=== PATIENT | male | born 1990 | race Caucasian/White ===

== ENCOUNTER 2017-09-09 07:55 | Emergency (ER) | payer BC ==
[2017-09-09] MEDS ORDERED: HYDROmorphone 2 MG/ML SDV IM ONE (08:22)
[2017-09-09] MEDS ORDERED: Metoclopramide 10 MG/2 ML SDV IM ONE (08:22)
--- NOTE | 2017-09-10 18:35 | ER ---
DATE SEEN: 09/09/2017 TIME SEEN: The patient was seen at 0730 hours. HISTORY OF PRESENT ILLNESS: The patient has a cyst-pilonidal cyst that was incised in [place] and he has mild epistaxis. He states he has epistaxis when he gets anxious. Today, he has marked pain. He had this incised yesterday. He was not sent home with any pain medicine. Packing was placed. He pulled the packing out per instructions per his doctor. The patient has marked pain. He is lying on his abdomen. PAST MEDICAL HISTORY: Hypertension and obesity. SOCIAL HISTORY: Smokes less than a pack of cigarettes a day. Works in [employer]. He is here with his . REVIEW OF SYSTEMS: Otherwise negative. PHYSICAL EXAMINATION: VITAL SIGNS: Blood pressure 133/79, heart rate 77, respirations 18, temperature is 36.8 degrees centigrade, and oxygen saturation 96%. 90.7 kg. GENERAL: The patient is prone on his abdomen. He has too much pain in his sacral area, where the incision of pilonidal cyst was performed. He has a trace of blood and is currently using handkerchief that he has under his face. HEENT: Negative. Nares have crusted blood in the right naris. No persistent bleeding. Pharynx without abnormality. No posterior pharyngeal blood. Moderate macroglossia. LUNGS: Clear without rales or rhonchi. HEART: S1, S2. No murmurs. NECK: No cervical adenopathy, thyromegaly, or masses in neck. ABDOMEN: Soft. No guarding. No abdominal discomfort. Bowel sounds present. He has incisions over the sacral area where the pilonidal cyst is. Moderate blood noted. This is closed. He has taken the dressing out. No erythema. Markedly tender to any touch or any cutaneous stimulation in the hansel - incisional area. The blood was washed off his area of the incision. When I did this, his sister jumped up and said "you are hurting him, don't do that to him. " I advised her that it would be good to clean off the blood surrounding the wound to make sure 1) that it is clean so clean dressings can be placed; 2) to replace the old blood soiled dressings, 3) further adhesive dressings would stick better; 4) the pain from the removal of the dressing would be momentary. I have spoken to his physician who performed the surgery. I ascertain that there was only 1 tape of packing in the wound. Ther is no sign of infection. ASSESSMENT: Status post pilonidal incision and drainage without pain medicine. He obviously has excessive pain. PLAN: He was given a shot of Dilaudid 2 mg IM plus Reglan 10 mg. He felt much better after the shot and the dressing was changed, cleansed, and replaced. The patient was dismissed with Percocet 7.5/325 q.4 hours p.r.n. pain, 16 tablets, and also prescription for 20 tablets of Percocet 5/325, a step-down for pain. The patient is to follow up with his doctor as directed. He informed of the potential need to have on going packing of this pilonidal cyst replace daily to promote healin by secondary intention. I defer it to his doctor's discretion. DIAGNOSES: 1. Hypertension. 2. Smoking abuse. 3. Morbid obesity. 4. Pain form incison opilonidal cyst yesterday /[id number]
== END 2017-09-09 08:55 | disposition home or self-care (01) ==
LOC: FB.ED 07:55
DX: L05.91 Pilonidal cyst without abscess (principal); I10 Essential (primary) hypertension; F17.210 Nicotine dependence, cigarettes, uncomplicated; E66.01 Morbid (severe) obesity due to excess calories
CPT/HCPCS: 99283; J1170; J2765